=== PATIENT | male | born 1945 | race Hispanic/Latino ===

== ENCOUNTER 2018-04-19 20:38 | Inpatient (IN) | payer OTHER, MEDICARE ==
[~2018-04-19] VITALS: Ht 160 cm; Wt 70.5 kg
[2018-04-19] MEDS ORDERED: IPRATROPIUM/ALBUTEROL SULFATE 3 ML SOLUTION IH ONE (20:59)
[2018-04-19 21:09] LABS: BASOPHILS % (AUTO) 0.5 % (0.0-5.0); EOSINOPHILS % (AUTO) 0.9 % (0.0-8.0); HEMATOCRIT 35.1 % (42-54); LYMPHOCYTES % (AUTO) 12.1 % (21.0-51.0); MEAN CORPUSCULAR HEMOGLOBIN 28.8 pg (27.0-33.0); MEAN CORPUSCULAR HGB CONC 33.1 g/dL (32.0-36.0); MEAN CORPUSCULAR VOLUME 87.2 fL (79-99); MONOCYTES % (AUTO) 6.6 % (3.0-13.0); NEUTROPHILS % (AUTO) 79.9 % (40.0-77.0); PLATELET COUNT (AUTO) 193 K/uL (130-400); RED BLOOD CELL COUNT(AUTO) 4.03 MIL/uL (4.50-6.20); RED CELL DISTRIBUTION WIDTH 14.5 % (11.0-15.5); WHITE BLOOD COUNT (AUTO) 8.7 K/uL (4.8-10.8)
[2018-04-19] MEDS ORDERED: ZOSYN 3.375GM+NS 50ML 50 ML IV ONE (21:09)
[2018-04-19] MEDS ORDERED: VANCOMYCIN 1GM+NS 250ML 250 ML IV ONE (21:09)
[2018-04-19] MEDS ORDERED: SODIUM CHLORIDE 0.9% 100 ML IV ONE ×2 (21:10→23:21)
[2018-04-19 21:22] LABS: CREATININE 1.2 mg/dL (0.5-1.5); POTASSIUM 4.1 mmol/L (3.5-5.1)
[2018-04-19 21:24] LABS: PARTIAL THROMBOPLASTIN TIME 25.3 SEC (26.3-35.5); PROTHROMBIN TIME 10.5 SEC (9.6-11.6)
[2018-04-19 21:27] LABS: ALBUMIN 4.3 g/dL (3.5-5.0); BILIRUBIN,TOTAL 0.6 mg/dL (0.2-1.0); TOTAL PROTEIN, SERUM 8.3 g/dL (6.0-8.3)
[2018-04-19] MEDS ORDERED: FUROSEMIDE 10 MG/ML 4ML VIAL ONE (21:29)
[2018-04-19] MEDS ORDERED: MORPHINE SULFATE 4 MG/1ML SYG ONE (21:33)
[2018-04-19] MEDS ORDERED: NITROGLYCERIN 50 MG/D5% WATER 1 BOT ONE (21:33)
[2018-04-19 21:36] LABS: B-TYPE NATRIURETIC PEPTIDE 898 pg/mL (0-100)
[2018-04-19] MEDS ORDERED: FUROSEMIDE 10 MG/ML 10ML VIAL ONE (23:15)
[2018-04-20] VITALS (40 sets, daily range): BP systolic 92–164; BP diastolic 50–92
[2018-04-20 04:04] LABS: BASOPHILS % (AUTO) 0.6 % (0.0-5.0); EOSINOPHILS % (AUTO) 0.1 % (0.0-8.0); HEMATOCRIT 31.4 % (42-54); MEAN CORPUSCULAR HEMOGLOBIN 29.9 pg (27.0-33.0); MEAN CORPUSCULAR HGB CONC 34.9 g/dL (32.0-36.0); MEAN CORPUSCULAR VOLUME 85.8 fL (79-99); MONOCYTES % (AUTO) 8.4 % (3.0-13.0); NEUTROPHILS % (AUTO) 78.9 % (40.0-77.0); NUCLEATED RED BLOOD CELLS 0.1 % (0.0-0.19); PLATELET COUNT (AUTO) 190 K/uL (130-400); RED BLOOD CELL COUNT(AUTO) 3.66 MIL/uL (4.50-6.20); RED CELL DISTRIBUTION WIDTH 14.5 % (11.0-15.5); WHITE BLOOD COUNT (AUTO) 6.5 K/uL (4.8-10.8)
[2018-04-20 04:21] LABS: ALBUMIN 3.9 g/dL (3.5-5.0); BILIRUBIN,TOTAL 0.6 mg/dL (0.2-1.0); CREATININE 1.2 mg/dL (0.5-1.5); CRP QUANTITATIVE 14.8 mg/L (0.00-9.0); POTASSIUM 3.6 mmol/L (3.5-5.1); TOTAL PROTEIN, SERUM 7.8 g/dL (6.0-8.3)
[2018-04-20 04:31] LABS: HEMOGLOBIN A1C 7.6 % (4.0-6.0)
[2018-04-20] MEDS ORDERED: NITROGLYCERIN 50 MG/D5% WATER 250 BOT IV PRN (05:00)
[2018-04-20] MEDS ORDERED: FUROSEMIDE 100 MG in SODIUM CHLORIDE 0.9% 90 ML IV SCH (06:00)
[2018-04-20 06:39] LABS: TROPONIN I 8.91 ng/mL (0.00-0.06)
[2018-04-20] MEDS ORDERED: POTASSIUM CHLORIDE 20 MEQ ERTAB PO ONE (08:24)
[2018-04-20] MEDS: LOSARTAN 50 MG TABLET PO SCH (08:42)
[2018-04-20] MEDS: CLOPIDOGREL BISULFATE 75 MG TAB PO SCH (08:42)
[2018-04-20] MEDS: RANOLAZINE 500 MG TAB.SR.12H PO SCH ×2 (08:42→20:31)
[2018-04-20] MEDS: ASPIRIN 81MG TAB.CHEW PO SCH (08:42)
[2018-04-20] MEDS: NIFEDIPINE ER 30 MG TAB PO SCH (08:42)
[2018-04-20] MEDS: CARVEDILOL 25 MG TABLET PO SCH ×2 (08:43→20:31)
[2018-04-20 08:54] LABS: CREATININE 1.3 mg/dL (0.5-1.5); POTASSIUM 3.4 mmol/L (3.5-5.1)
[2018-04-20] MEDS ORDERED: ISOSORBIDE MONO 30MG TAB SR PO SCH (09:00)
[2018-04-20] MEDS ORDERED: POTASSIUM CHLORIDE 20MEQ/100ML 100 ML IV ONE (09:53)
[2018-04-20] MEDS ORDERED: POTASSIUM CHLORIDE 20MEQ/100ML 100 ML IV PRN ×2 (11:00)
[2018-04-20] MEDS ORDERED: DEXTROSE 50%-WATER 50 ML DISP.SYRIN IV PRN (11:00)
[2018-04-20] MEDS ORDERED: GLUCAGON 1MG KIT 1 MG ML IM PRN (11:00)
[2018-04-20] MEDS ORDERED: POTASSIUM CHLORIDE 10MEQ/100ML 100 ML IV PRN ×2 (11:00)
[2018-04-20] MEDS ORDERED: POTASSIUM CHLORIDE 10% ELIXIR 20 MEQ/15 ML UDCUP PO PRN ×2 (11:00)
[2018-04-20] MEDS ORDERED: POTASSIUM CHLORIDE 20 MEQ ERTAB PO PRN ×2 (11:00)
[2018-04-20] MEDS ORDERED: LIDOCAINE HCL-MPF 1% 2ML VIAL IVP PRN ×4 (11:00)
[2018-04-20] MEDS: INSULIN HUMULIN R 100 UNIT/ML 3ML SQ SCH ×3 (11:30→21:07)
[2018-04-20] MEDS ORDERED: INSULIN HUMULIN R 100 UNIT/ML 3ML ONE (11:35)
[2018-04-20 12:54] LABS: TROPONIN I 10.45 ng/mL (0.00-0.06)
[2018-04-20] MEDS: ISOSORBIDE MONO 30MG TAB SR PO SCH (15:36)
[2018-04-20 18:21] LABS: CREATININE 1.4 mg/dL (0.5-1.5)
[2018-04-20 18:32] LABS: TROPONIN I 9.41 ng/mL (0.00-0.06)
[2018-04-20] MEDS: FAMOTIDINE 20MG TAB 20 MG TAB PO SCH (20:30)
[2018-04-20] MEDS: ENOXAPARIN SODIUM 80 MG/0.8 ML SQ SCH (20:30)
[2018-04-20] MEDS: ATORVASTATIN CALCIUM 40 MG TABLET PO SCH (20:31)
[2018-04-21] VITALS (7 sets, daily range): BP systolic 96–126; BP diastolic 53–65
[2018-04-21 04:00] LABS: CREATININE 1.3 mg/dL (0.5-1.5)
[2018-04-21 04:02] LABS: BASOPHILS % (AUTO) 0.6 % (0.0-5.0); EOSINOPHILS % (AUTO) 1.3 % (0.0-8.0); LYMPHOCYTES % (AUTO) 22.4 % (21.0-51.0); MEAN CORPUSCULAR HEMOGLOBIN 28.8 pg (27.0-33.0); MEAN CORPUSCULAR HGB CONC 33.5 g/dL (32.0-36.0); MEAN CORPUSCULAR VOLUME 86.1 fL (79-99); MONOCYTES % (AUTO) 11.6 % (3.0-13.0); NEUTROPHILS % (AUTO) 64.1 % (40.0-77.0); PLATELET COUNT (AUTO) 172 K/uL (130-400); RED BLOOD CELL COUNT(AUTO) 3.72 MIL/uL (4.50-6.20); RED CELL DISTRIBUTION WIDTH 14.3 % (11.0-15.5); WHITE BLOOD COUNT (AUTO) 6.7 K/uL (4.8-10.8)
[2018-04-21] MEDS: INSULIN HUMULIN R 100 UNIT/ML 3ML SQ SCH ×4 (06:12→20:52)
[2018-04-21] MEDS: ASPIRIN 81MG TAB.CHEW PO SCH (08:09)
[2018-04-21] MEDS: RANOLAZINE 500 MG TAB.SR.12H PO SCH ×2 (08:09→20:52)
[2018-04-21] MEDS: CLOPIDOGREL BISULFATE 75 MG TAB PO SCH (08:09)
[2018-04-21] MEDS: ENOXAPARIN SODIUM 80 MG/0.8 ML SQ SCH ×2 (08:10→20:53)
[2018-04-21] MEDS: FAMOTIDINE 20MG TAB 20 MG TAB PO SCH ×2 (08:11→20:52)
[2018-04-21] MEDS: NIFEDIPINE ER 30 MG TAB PO SCH (08:11)
[2018-04-21] MEDS: ISOSORBIDE MONO 30MG TAB SR PO SCH (08:11)
[2018-04-21] MEDS: CARVEDILOL 25 MG TABLET PO SCH ×2 (08:12→20:52)
[2018-04-21] MEDS: LOSARTAN 50 MG TABLET PO SCH (08:12)
[2018-04-21] MEDS ORDERED: ENOXAPARIN SODIUM 30 MG/0.3 ML SQ SCH (09:00)
[2018-04-21] MEDS ORDERED: FUROSEMIDE 40 MG TABLET PO SCH (09:00)
[2018-04-21] MEDS ORDERED: PHARMACY COMMUNICATION MISC SCH (12:00)
[2018-04-21] MEDS: ATORVASTATIN CALCIUM 40 MG TABLET PO SCH (20:52)
[2018-04-22] VITALS (14 sets, daily range): BP systolic 91–139; BP diastolic 53–74
[2018-04-22] MEDS: INSULIN HUMULIN R 100 UNIT/ML 3ML SQ SCH ×4 (06:26→22:15)
[2018-04-22] MEDS ORDERED: LIDOCAINE HCL-MPF 2% 5ML VIAL ONE (08:36)
[2018-04-22] MEDS ORDERED: NITROGLYCERIN 5 MG/ML 10 ML VIAL IV ONE (08:36)
[2018-04-22] MEDS ORDERED: IOHEXOL 350 MG/ML 100ML INFUS..BTL IV ONE (08:36)
[2018-04-22] MEDS ORDERED: IOHEXOL-350 50ML VIAL IV ONE (08:36)
[2018-04-22] MEDS ORDERED: BIVALIRUDIN 250 MG/VIAL IV ONE (08:36)
[2018-04-22] MEDS: CARVEDILOL 25 MG TABLET PO SCH ×3 (09:00→22:06)
[2018-04-22] MEDS: FAMOTIDINE 20MG TAB 20 MG TAB PO SCH ×3 (09:00→22:05)
[2018-04-22] MEDS: FUROSEMIDE 40 MG TABLET PO SCH ×2 (09:00→12:56)
[2018-04-22] MEDS: NIFEDIPINE ER 30 MG TAB PO SCH ×2 (09:00→12:57)
[2018-04-22] MEDS: ISOSORBIDE MONO 30MG TAB SR PO SCH ×2 (09:00→12:56)
[2018-04-22] MEDS: CLOPIDOGREL BISULFATE 75 MG TAB PO SCH (09:00)
[2018-04-22] MEDS: ASPIRIN 81MG TAB.CHEW PO SCH (09:00)
[2018-04-22] MEDS: LOSARTAN 50 MG TABLET PO SCH ×2 (09:00→12:57)
[2018-04-22] MEDS: RANOLAZINE 500 MG TAB.SR.12H PO SCH ×3 (09:00→22:07)
[2018-04-22] MEDS ORDERED: ASPIRIN 81MG TAB.CHEW ONE (11:00)
[2018-04-22] MEDS ORDERED: CLOPIDOGREL BISULFATE 300 MG TAB ONE (11:00)
[2018-04-22] MEDS ORDERED: SODIUM CHLORIDE 0.9% 1000ML 1,000 ML IV SCH ×2 (11:02→12:15)
[2018-04-22] MEDS ORDERED: SODIUM CHLORIDE 0.9% 1000ML 1,000 ML IV ONE (12:40)
[2018-04-22] MEDS: ATORVASTATIN CALCIUM 40 MG TABLET PO SCH (22:06)
[2018-04-23 03:34] LABS: BASOPHILS % (AUTO) 0.4 % (0.0-5.0); HEMATOCRIT 30.3 % (42-54); MEAN CORPUSCULAR HEMOGLOBIN 29.5 pg (27.0-33.0); MEAN CORPUSCULAR HGB CONC 34.5 g/dL (32.0-36.0); MEAN CORPUSCULAR VOLUME 85.6 fL (79-99); NEUTROPHILS % (AUTO) 65.6 % (40.0-77.0); NUCLEATED RED BLOOD CELLS 0.1 % (0.0-0.19); PLATELET COUNT (AUTO) 177 K/uL (130-400); RED BLOOD CELL COUNT(AUTO) 3.54 MIL/uL (4.50-6.20); RED CELL DISTRIBUTION WIDTH 14.1 % (11.0-15.5)
[2018-04-23 03:48] LABS: ALBUMIN 3.1 g/dL (3.5-5.0); BILIRUBIN,TOTAL 0.5 mg/dL (0.2-1.0); CREATININE 1.4 mg/dL (0.5-1.5); POTASSIUM 4.1 mmol/L (3.5-5.1); TOTAL PROTEIN, SERUM 6.6 g/dL (6.0-8.3)
[2018-04-23 04:04] VITALS: BP 117/58
[2018-04-23] MEDS: INSULIN HUMULIN R 100 UNIT/ML 3ML SQ SCH ×2 (05:59→11:48)
[2018-04-23 07:00] VITALS: BP 127/62
[2018-04-23] MEDS ORDERED: FAMOTIDINE 20MG TAB 20 MG TAB PO SCH (07:22)
[2018-04-23] MEDS: CARVEDILOL 25 MG TABLET PO SCH (09:01)
[2018-04-23] MEDS: CLOPIDOGREL BISULFATE 75 MG TAB PO SCH (09:01)
[2018-04-23] MEDS: ASPIRIN 81MG TAB.CHEW PO SCH (09:02)
[2018-04-23] MEDS: LOSARTAN 50 MG TABLET PO SCH (09:02)
[2018-04-23] MEDS: NIFEDIPINE ER 30 MG TAB PO SCH (09:02)
[2018-04-23] MEDS: RANOLAZINE 500 MG TAB.SR.12H PO SCH (09:02)
[2018-04-23] MEDS: ISOSORBIDE MONO 30MG TAB SR PO SCH (09:02)
[2018-04-23] MEDS: FUROSEMIDE 40 MG TABLET PO SCH (09:03)
[2018-04-23 11:00] VITALS: BP 102/56
[2018-04-23] MEDS ORDERED: Isosorbide Mono 30MG Tab Sr PO (11:27)
[2018-04-23] MEDS ORDERED: ATOR40TA69 PO (11:27)
[2018-04-23] MEDS ORDERED: CARV25TA PO (11:27)
[2018-04-23] MEDS ORDERED: LOSA50TA2 PO (11:27)
[2018-04-23] MEDS ORDERED: RANO500T2 PO (11:27)
[2018-04-23] MEDS ORDERED: ASPI-1005 PO (11:27)
[2018-04-23] MEDS ORDERED: CLOP75TA14 PO (11:27)
[2018-04-23] MEDS ORDERED: NIFE30TA91 PO (11:27)
[2018-04-23] MEDS ORDERED: FURO40TA7 PO (11:27)
== END 2018-04-23 15:38 | disposition home or self-care (01) | DRG 246 ==
LOC: EDBD 20:38 → EDH 20:38 → EDHIP 23:15 → 2AH 04-20 00:24 → 2BH 04-20 06:53 → 2DH 04-20 14:00
PROVIDERS: ADMIT Hospitalist; ATTEND Hospitalist
PROC: 5A09357 Assistance with Respiratory Ventilation, Less than 24 Consecutive Hours, Continuous Positive Airway Pressure (ICD-10-PCS; 2018-04-19)
PROC: 5A09357 Assistance with Respiratory Ventilation, Less than 24 Consecutive Hours, Continuous Positive Airway Pressure (ICD-10-PCS; 2018-04-20)
PROC: 5A09357 Assistance with Respiratory Ventilation, Less than 24 Consecutive Hours, Continuous Positive Airway Pressure (ICD-10-PCS; 2018-04-21)
PROC: 4A023N7 Measurement of Cardiac Sampling and Pressure, Left Heart, Percutaneous Approach (ICD-10-PCS; principal; 2018-04-22)
PROC: 027034Z Dilation of Coronary Artery, One Artery with Drug-eluting Intraluminal Device, Percutaneous Approach (ICD-10-PCS; 2018-04-22)
PROC: B2111ZZ Fluoroscopy of Multiple Coronary Arteries using Low Osmolar Contrast (ICD-10-PCS; 2018-04-22)
PROC: B2151ZZ Fluoroscopy of Left Heart using Low Osmolar Contrast (ICD-10-PCS; 2018-04-22)
PROC: 5A09357 Assistance with Respiratory Ventilation, Less than 24 Consecutive Hours, Continuous Positive Airway Pressure (ICD-10-PCS; 2018-04-22)
PROC: 5A09357 Assistance with Respiratory Ventilation, Less than 24 Consecutive Hours, Continuous Positive Airway Pressure (ICD-10-PCS; 2018-04-23)
DX: T82.855A Stenosis of coronary artery stent, initial encounter (principal); I21.4 Non-ST elevation (NSTEMI) myocardial infarction; I50.43 Acute on chronic combined systolic (congestive) and diastolic (congestive) heart failure; J96.01 Acute respiratory failure with hypoxia; J40 Bronchitis, not specified as acute or chronic; E11.65 Type 2 diabetes mellitus with hyperglycemia; I25.10 Atherosclerotic heart disease of native coronary artery without angina pectoris; Z95.1 Presence of aortocoronary bypass graft; E78.5 Hyperlipidemia, unspecified; E11.51 Type 2 diabetes mellitus with diabetic peripheral angiopathy without gangrene; I25.5 Ischemic cardiomyopathy; D64.9 Anemia, unspecified; I11.0 Hypertensive heart disease with heart failure; I45.10 Unspecified right bundle-branch block; Y83.9 Surgical procedure, unspecified as the cause of abnormal reaction of the patient, or of later complication, without mention of misadventure at the time of the procedure; Z79.4 Long term (current) use of insulin; Z79.82 Long term (current) use of aspirin; Z79.899 Other long term (current) drug therapy; Z87.891 Personal history of nicotine dependence; Y92.89 Other specified places as the place of occurrence of the external cause
CPT/HCPCS: 36415; 71045; 80048; 80053; 80061; 82550; 82948; 83036; 83605; 83874; 83880; 84484; 85025; 85610; 85730; 86140; 87040; 93005; 93306; 93459; 94640; 94660; 99291; C1725; C1760; C1769; C1894; C9604; J0583; J1644; J1650; J1815; J1940; J2270; J2543; J3370; J3480; J3490; J7030; Q9967